=== PATIENT | female | born 1985 | race Caucasian/White ===

== ENCOUNTER 2024-08-08 22:08 | Emergency (ER) | payer MEDICAID ==
[~2024-08-08] VITALS: Ht 167.6 cm; Wt 74.0 kg
[2024-08-08 22:13] VITALS: BP 142/90; PULSE 102; RESP 18; TEMP 97.3; O2SAT 98
== END 2024-08-08 23:58 | disposition left against medical advice (07) ==
LOC: ER 22:08
DX: R10.9 Unspecified abdominal pain (principal); Z53.21 Procedure and treatment not carried out due to patient leaving prior to being seen by health care provider